=== PATIENT | female | born 1955 | race Asian ===

== ENCOUNTER → 2019-03-08 08:57 | Outpatient (CLI) | payer OTHER, SELFPAY ==
--- NOTE | 2019-03-08 | DI.ECHO.S_ITS ---
[place] [facility] +---------+ [facility] +---------+ : : [address] : [address] : : : : [id number] : : : : Phone: [phone]+ Echocardiogram Report + + :Name: MARLY NAPOLES Study Date: 03/08/2019 Height: 59 in : :[facility] Exam Location: [facility] Weight: 115 lb : : Gender: Female BSA: 1.5 m2 : :: 1955 Age: 63 yrs BP: 143/85 mmHg: :Reason For Study: MURMUR : : Performed By: Miguel Arizmendi : :Referring: KENYON LEONARD : + + Interpretation Summary 1) Normal left ventricular thickness, size, wall motion, and systolic function (EF 60-65%). 2) Normal right ventricular size and function. 3) There is mild aortic regurgitation. 4) Compared to the Echo done 03/31/2015, no significant change. Procedure: A two-dimensional transthoracic echocardiogram with color flow and Doppler was performed. The study quality was technically adequate. Comparison is made with the echocardiogram of 03/31/15. The patient was in normal sinus rhythm during the exam. Left Ventricle: The left ventricle is normal in size. There is normal left ventricular wall thickness. The ejection fraction is estimated to be 60-65%. There are no focal wall motion abnormalities. Right Ventricle: The right ventricle is normal in size and function. Atria: The left atrial size is normal. The right atrium is mildly dilated. The interatrial septum is intact with no evidence for an atrial septal defect. Mitral Valve: The mitral valve is normal in structure and function. There is trace mitral regurgitation. Aortic Valve: The aortic valve is trileaflet. The aortic valve opens well. There is no aortic valve stenosis. There is mild aortic regurgitation. Tricuspid Valve: The tricuspid valve is normal in structure and function. There is mild tricuspid regurgitation. The right ventricular systolic pressure is estimated to be at least 28 mmHg based on an estimated right atrial pressure of 3 mm Hg. Pulmonic Valve: The pulmonic valve is normal in structure and function. There is trace pulmonic regurgitation. Great Vessels: The aortic root is normal size. The ascending aorta is at the upper limits of normal in size. The pulmonary artery is normal size. The IVC is of normal diameter and collapses greater than 50% with a sniff. This suggests a low right atrial pressure of 3 mm Hg. Pericardium/ Pleura There is no pericardial effusion. There is no pleural effusion. MMode/2D Measurements & Calculations LVIDd: 4.4 cm LVOT diam: 1.8 cm LVIDs: 3.1 cm Ao root diam: 2.6 cm FS: 30.0 % Aortic Jxn: 1.9 cm EPSS: 0.49 cm asc Aorta Diam: 3.5 cm IVSd: 0.90 cm LVPWd: 0.74 cm LV jeter. diameter/BSA (cm/m^2): 3.0 LV sys. diameter/BSA (cm/m^2): 2.1 LA dimension: 3.0 cm RA long axis: 4.5 cm LA A2 area: 14.6 cm2 RA area: 16.1 cm2 LA A4 area: 16.4 cm2 RA vol: 48.8 ml LA length (vol): 4.8 cm RA : 33.5 ml/m2 LA vol: 41.9 ml IVC diam: 1.3 cm LA vol index: 28.8 ml/m2 Doppler Measurements & Calculations Ao V2 max: 173.0 cm/sec LVOT Max Curtis: 97.3 cm/sec Ao V2 mean: 109.6 cm/sec LV V1 max P.8 mmHg Ao max P.0 mmHg LV V1 VTI: 29.4 cm Ao mean P.5 mmHg JAMIR(I,D): 1.8 cm2 Ao V2 VTI: 41.3 cm JAMIR(V,D): 1.4 cm2 sev ratio: 0.71 JAMIR indexed to BSA (cm^2/m^2): 1.2 AI P1/2t: 605.7 msec AI dec slope: 233.7 cm/sec2 MV E max curtis: 78.5 cm/sec TR max curtis: 251.6 cm/sec MV A max curtis: 73.0 cm/sec TR max P.3 mmHg MV E/A: 1.1 PA V2 max: 88.4 cm/sec Med Peak E' Curtis: 5.6 cm/sec PA V2 mean: 63.2 cm/sec E/E' med: 14.1 PA mean P.7 mmHg Lat Peak E' Curtis: 7.4 cm/sec PA pr(Accel): 65.7 mmHg E/E' lat: 10.6 E/e' average: 12.3 MV dec time: 0.16 sec SV(LVOT): 72.8 ml Reading Physician:04:29 PM
== END ==
PROVIDERS: PCP Nurse Practitioner Family; Visit Provider Internal Medicine Cardiovascular Disease
DX: I08.2 Rheumatic disorders of both aortic and tricuspid valves (principal); R01.1 Cardiac murmur, unspecified
CPT/HCPCS: 93306

== ENCOUNTER → 2021-05-15 13:37 | Outpatient (CLI) | payer OTHER, SELFPAY ==
--- NOTE | 2021-05-15 13:38 | DI.MG.S_ITS ---
BILATERAL DIGITAL SCREENING MAMMOGRAM 3D/2D WITH CAD: 05/15/2021 CLINICAL: Routine screening. Comparison is made to exams dated: 11/15/2013 mammogram, 01/07/2015 mammogram, and 01/12/2016 mammogram - [facility]. The tissue of both breasts is heterogeneously dense. This may lower the sensitivity of mammography. Current study was also evaluated with a Computer Aided Detection (CAD) system. There are benign calcifications in both breasts. No significant masses, calcifications, or other findings are seen in either breast. There has been no significant interval change. IMPRESSION: BENIGN There is no mammographic evidence of malignancy. A 1 year screening mammogram is recommended. This exam was interpreted at Station ID: [id number]. NOTE: For mammograms, a report in lay terms will be sent to the patient. Approximately 15% of breast malignancies will not be visualized mammographically. In the management of a palpable breast mass, a negative mammogram must not discourage biopsy of a clinically suspicious lesion. Electronically Signed By: Tanner gutierrez/sheeba:05/15/2021 14:39:47 letter sent: Normal Exam ACR BI-RADS Category 2: Benign Finding(s) 3342F
== END ==
PROVIDERS: PCP Internal Medicine Cardiovascular Disease; Referring Provider Internal Medicine Cardiovascular Disease; Visit Provider Internal Medicine Cardiovascular Disease
DX: Z12.31 Encounter for screening mammogram for malignant neoplasm of breast (principal)
CPT/HCPCS: 77063; 77067